=== PATIENT | female | born 1985 | race American Indian/Alaskan Native ===

== ENCOUNTER 2018-04-20 10:59 | Emergency (ER) | payer SELFPAY ==
[2018-04-20 11:54] VITALS: BP 120/80
--- NOTE | 2018-04-20 14:19 | Emergency Department Report ---
ED Female HPI - General Chief complaint: Urogenital-Female Stated complaint: MED CLEARANCE Time Seen by Provider: 04/20/18 13:45 Source: patient Mode of arrival: Ambulatory Limitations: No Limitations - History of Present Illness Initial comments: This is a 32-year-old -[place]yp[place] female who presents with a bump on her right labia for 1 day. Patient reports waking up with pain to right labia from a painful bump. Patient thought she had irritation and soreness from intercourse Wednesday night but when pain persisted into yesterday she decided to come in for evaluation. Patient reports having intercourse with one partner for the past couple of years. She had a full STD screening and one month ago while in care home and that was normal. She does not believe she has recent exposure to STD. Denies frequency, urgency, dysuria, vaginal discharge, supapubic pain, and low back pain. Complaint: other (bump on right labia) -: days(s) (1 day) Location: labia (left side) Radiation: non-radiating Severity: moderate Severity scale (0 -10): 4 Quality: aching Consistency: constant Improves with: none Worsens with: other (sitting) Are you Now?: No Last Menstrual Period: 03/21/18 EDC: 12/26/18 Associated Symptoms: denies other symptoms - Related Data Sexually active: Yes : 1 Para: 0 A: 1 Previous Rx's Medication Instructions Recorded Last Taken Type LORazepam [Ativan] 1 mg PO BID PRN #6 tablet 02/24/16 Unknown Rx Ibuprofen [Motrin 600 MG tab] 600 mg PO Q8H PRN #15 tablet 04/20/18 Unknown Rx Sulfamethoxazole/Trimethoprim 1 each PO BID #20 tablet 04/20/18 Unknown Rx [Bactrim DS TAB] Allergies Allergy/AdvReac Type Severity Reaction Status Date / Time acetaminophen [From Vicodin] AdvReac Rash Verified 02/24/16 17:07 hydrocodone bitartrate AdvReac Rash Verified 02/24/16 17:07 [From Vicodin] ED Review of Systems ROS: Stated complaint: MED CLEARANCE Other details as noted in HPI Constitutional: denies: chills, fever Respiratory: denies: cough, shortness of breath, wheezing Cardiovascular: denies: chest pain, palpitations Gastrointestinal: denies: abdominal pain, nausea, vomiting, diarrhea Genitourinary: other (painful mass to right labia). denies: urgency, dysuria, discharge Neurological: denies: headache, weakness, paresthesias Psychiatric: denies: anxiety, depression ED Past Medical Hx - Past Medical History Previous Medical History?: No Hx Psychiatric Treatment: Yes (ANXIETY / PANIC ATTACKS) Additional medical history: Anxiety - Surgical History Past Surgical History?: No Additional Surgical History: RIGHT FOOT. - Social History Smoking Status: Current Every Day Smoker Substance Use Type: None - Medications Home Medications: Home Medications Medication Instructions Recorded Confirmed Last Taken Type LORazepam [Ativan] 1 mg PO BID PRN #6 tablet 02/24/16 Unknown Rx Ibuprofen [Motrin 600 MG tab] 600 mg PO Q8H PRN #15 tablet 04/20/18 Unknown Rx Sulfamethoxazole/Trimethoprim 1 each PO BID #20 tablet 04/20/18 Unknown Rx [Bactrim DS TAB] ED Physical Exam - General Limitations: No Limitations General appearance: alert, in no apparent distress - Respiratory Respiratory exam: Present: normal lung sounds bilaterally. Absent: respiratory distress - Cardiovascular Cardiovascular Exam: Present: regular rate, normal rhythm, normal heart sounds. Absent: systolic murmur, diastolic murmur, rubs, gallop - GI/Abdominal GI/Abdominal exam: Present: soft, normal bowel sounds. Absent: organomegaly, mass - External exam: Present: lesions (2 cm nodule right labia minora tender, soft at the site of the Bartholin duct ). Absent: erythema, swelling, lacerations, ecchymosis, bleeding Speculum exam: Present: normal speculum exam - Neurological Exam Neurological exam: Present: alert, oriented X3 - Psychiatric Psychiatric exam: Present: normal affect, normal mood - Skin Skin exam: Present: warm, dry, intact, normal color. Absent: rash ED Course Vital Signs 04/20/18 11:51 Temperature 97.6 F Pulse Rate 73 Respiratory 16 Rate Blood Pressure 120/80 O2 Sat by Pulse 97 Oximetry ED Medical Decision Making - Medical Decision Making This is a 32-year-old -[place]yp[place] female who presents with abscess right labia for 1 day. Patient was examined by me. Vitals are stable and in no acute distress. No labs ordered. Physical findings susceptible of bartholin cyst. The cyst is not ready for I&D at this time. Start Bactrim DS and warm sitz bath. Follow up with [facility]. Patient has [facility] card and will f/u there in 3 to 5 days post antibiotic treatment. Discharged home in stable condition. F/U with PCP. Critical care attestation.: If time is entered above; I have spent that time in minutes in the direct care of this critically ill patient, excluding procedure time. ED Disposition Clinical Impression: Bartholin gland cyst, Mass of vagina Disposition: TO HOME OR SELFCARE Is pt being admited?: No Does the pt Need Aspirin: No Condition: Stable Instructions: Bartholin Cyst (ED) Additional Instructions: Complete full round of bactrim DS antibiotic as prescribed. Follow-up with [facility] in 3-5 days after starting antibiotics for reevaluation. Follow up with PCP or ER in 2-3 days. Return to ER if foul smelling discharge, swelling, or severe pain to wound. Prescriptions: Ibuprofen [Motrin 600 MG tab] 600 mg PO Q8H PRN #15 tablet PRN Reason: Pain Sulfamethoxazole/Trimethoprim [Bactrim DS TAB] 1 each PO BID #20 tablet Referrals: [facility] [Outside] - 3-5 Days [facility] [Outside] - 3-5 Days Time of Disposition: 14:51 Print Language: SLOVAK
== END 2018-04-20 15:00 | disposition home or self-care (01) ==
LOC: ED 10:59
DX: N75.0 Cyst of Bartholin's gland (principal); R22.9 Localized swelling, mass and lump, unspecified; F41.9 Anxiety disorder, unspecified; F17.200 Nicotine dependence, unspecified, uncomplicated; Z88.8 Allergy status to other drugs, medicaments and biological substances
CPT/HCPCS: 99283

== ENCOUNTER 2019-05-30 11:31 | Emergency (ER) | payer OTHER ==
--- NOTE | 2019-05-30 11:56 | Event Note ---
ED Screening Note Date of service: 05/30/19 Time: 11:55 ED Screening Note: This is a 33 y.o. F. that presents with an abscess to right groin and right breast for 3 days. Patient always complain of vaginal discharge. This initial assessment/diagnostic orders/clinical plan/treatment(s) is/are s ubject to change based on patients health status, clinical progression and re- assessment by fellow clinical providers in the ED. Further treatment and workup at subsequent clinical providers discretion. Patient/guardian urged not to elope from the ED as their condition may be serious if not clinically assessed and managed. Initial orders include: ACC for further evaluation.
--- NOTE | 2019-05-30 12:52 | Emergency Department Report ---
ED General Adult HPI - General Chief complaint: Abdominal Pain Stated complaint: CHEST/ABD PAIN Time Seen by Provider: 05/30/19 11:55 Source: patient Mode of arrival: Ambulatory Limitations: No Limitations - History of Present Illness Initial comments: The patient presents to the emergency department with a chief complaint of pelvic pain. Patient states that she had intercourse 3 days ago and the condom worsened since that time she's had vaginal irritation. Patient also complains of pain at her sternum but denies any trauma or injury. She says she's had STD testing done. -: Sudden Location: genitals Improves with: none Worsens with: none Associated Symptoms: denies other symptoms Treatments Prior to Arrival: none - Related Data Previous Rx's Medication Instructions Recorded Last Taken Type LORazepam [Ativan] 1 mg PO BID PRN #6 tablet 02/24/16 Unknown Rx Ibuprofen [Motrin 600 MG tab] 600 mg PO Q8H PRN #15 tablet 04/20/18 Unknown Rx Sulfamethoxazole/Trimethoprim 1 each PO BID #20 tablet 04/20/18 Unknown Rx [Bactrim DS TAB] Allergies Allergy/AdvReac Type Severity Reaction Status Date / Time acetaminophen [From Vicodin] AdvReac Rash Verified 02/24/16 17:07 hydrocodone bitartrate AdvReac Rash Verified 02/24/16 17:07 [From Vicodin] ED Review of Systems ROS: Stated complaint: CHEST/ABD PAIN Other details as noted in HPI Comment: All other systems reviewed and negative Constitutional: denies: chills, fever Eyes: denies: eye pain, eye discharge, vision change ENT: denies: ear pain, throat pain Respiratory: denies: cough, shortness of breath, wheezing Cardiovascular: denies: chest pain, palpitations Endocrine: no symptoms reported Gastrointestinal: denies: abdominal pain, nausea, diarrhea Genitourinary: denies: urgency, dysuria, discharge Musculoskeletal: denies: back pain, joint swelling, arthralgia Skin: denies: rash, lesions Neurological: denies: headache, weakness, paresthesias Psychiatric: denies: anxiety, depression Hematological/Lymphatic: denies: easy bleeding, easy bruising ED Past Medical Hx - Past Medical History Hx Psychiatric Treatment: Yes (ANXIETY / PANIC ATTACKS) Additional medical history: Anxiety - Surgical History Additional Surgical History: RIGHT FOOT. - Social History Smoking Status: Current Every Day Smoker Substance Use Type: None - Medications Home Medications: Home Medications Medication Instructions Recorded Confirmed Last Taken Type LORazepam [Ativan] 1 mg PO BID PRN #6 tablet 02/24/16 Unknown Rx Ibuprofen [Motrin 600 MG tab] 600 mg PO Q8H PRN #15 tablet 04/20/18 Unknown Rx Sulfamethoxazole/Trimethoprim 1 each PO BID #20 tablet 04/20/18 Unknown Rx [Bactrim DS TAB] ED Physical Exam - General Limitations: No Limitations General appearance: alert, in no apparent distress - Head Head exam: Present: atraumatic, normocephalic - Eye Eye exam: Present: normal appearance, PERRL, EOMI - ENT ENT exam: Present: mucous membranes moist - Neck Neck exam: Present: normal inspection - Respiratory Respiratory exam: Present: normal lung sounds bilaterally. Absent: respiratory distress - Cardiovascular Cardiovascular Exam: Present: regular rate, normal rhythm. Absent: systolic murmur, diastolic murmur, rubs, gallop - GI/Abdominal GI/Abdominal exam: Present: soft, normal bowel sounds. Absent: distended, tenderness - Rectal Rectal exam: Present: deferred - External exam: Present: normal external exam, other (entire gynecological exam was chaperoned by nurse Danilo RN) Speculum exam: Present: normal speculum exam. Absent: vaginal discharge, cervical discharge, vaginal bleeding, laceration Bi-manual exam: Present: normal bi-manual exam - Extremities Exam Extremities exam: Present: normal inspection - Back Exam Back exam: Present: normal inspection - Neurological Exam Neurological exam: Present: alert, oriented X3 - Psychiatric Psychiatric exam: Present: normal affect, normal mood - Skin Skin exam: Present: warm, dry, intact, normal color. Absent: rash ED Course Vital Signs 05/30/19 11:55 Temperature 97.7 F Pulse Rate 90 Respiratory 12 Rate Blood Pressure 130/85 [Left] O2 Sat by Pulse 98 Oximetry ED Medical Decision Making - Lab Data Lab Results 05/30/19 Range/Units 13:05 Urine Color Yellow (Yellow) Urine Turbidity Clear (Clear) Urine pH 5.0 (5.0-7.0) Ur Specific [place] 1.018 (1.003-1.030) Urine Protein <15 mg/dl (Negative) mg/dL Urine Glucose (UA) Neg (Negative) mg/dL Urine Ketones Neg (Negative) mg/dL Urine Blood Neg (Negative) Urine Nitrite Neg (Negative) Urine Bilirubin Neg (Negative) Urine Urobilinogen < 2.0 (<2.0) mg/dL Ur Leukocyte Esterase Neg (Negative) Urine WBC (Auto) 2.0 (0.0-6.0) /HPF Urine RBC (Auto) 2.0 (0.0-6.0) /HPF U Epithel Cells (Auto) 1.0 (0-13.0) /HPF Urine Mucus Few /HPF - Medical Decision Making Discussed with patient possible HIV prophylaxis and the patient states she is not concerned about HIV from his partner. discussed results with pt Critical care attestation.: If time is entered above; I have spent that time in minutes in the direct care of this critically ill patient, excluding procedure time. ED Disposition Clinical Impression: STD exposure, Abdominal pain Disposition: DC-01 TO HOME OR SELFCARE Is pt being admited?: No Does the pt Need Aspirin: No Condition: Stable Instructions: Abdominal Pain (ED), Sexually Transmitted Diseases (ED), Safe Sex (ED) Additional Instructions: return if worse Referrals: BHARGAVI ORELLANA MD [Primary Care Provider] - 3-5 Days Time of Disposition: 15:31
[2019-05-30 14:15] LABS: Bilirubin,Urine NEG (Negative); Blood,Urine NEG (Negative); Color,Urine Yellow (Yellow); Mucus,Urine FEW /HPF; Protein,Urine <15 mg/dL mg/dL (Negative); Urobilinogen,Urine < 2.0 mg/dL (<2.0)
[2019-05-30] MEDS ORDERED: ROCEPHIN IM ONE (14:26)
[2019-05-30] MEDS ORDERED: ZITHROMAX PO ONE (14:26)
[2019-05-30] MEDS ORDERED: ZOFRAN ODT PO ONE (14:26)
[2019-05-30] MEDS ORDERED: XYLOCAINE 1% MPF 5 mL INFILTRATI ONE (14:26)
[2019-05-30 15:44] VITALS: BP 132/81
== END 2019-05-30 15:44 | disposition home or self-care (01) ==
LOC: ED 11:31
DX: R10.2 Pelvic and perineal pain (principal); N89.8 Other specified noninflammatory disorders of vagina; F41.9 Anxiety disorder, unspecified; F17.200 Nicotine dependence, unspecified, uncomplicated; Z88.6 Allergy status to analgesic agent; Z88.5 Allergy status to narcotic agent
CPT/HCPCS: 81001; 87210; 96372; 99283; J0696; 87591; Q0162